=== PATIENT | male | born 1950 | race Caucasian/White ===

== ENCOUNTER → 2017-11-15 | Outpatient (CLI) | payer MEDICARE, OTHER ==
--- NOTE | 2017-11-15 10:25 | Diagnostic Imaging Report ---
INDICATION: Benign prostatic hypertrophy. FINDINGS: The right kidney measures 10.7 x 5.3 x 5.3 cm and the left kidney measures 10.7 x 5.7 x 5.0 cm. The cortical thickness and echogenicity is normal. No calculi are seen. There is no hydronephrosis. The bladder is decompressed. IMPRESSION: Unremarkable renal ultrasound. Dictated by: Dictated on workstation # [id number]
== END ==
LOC: RAD 09:50
PROVIDERS: ATTEND Urology
DX: N40.1 Benign prostatic hyperplasia with lower urinary tract symptoms (principal)
CPT/HCPCS: 76770

== ENCOUNTER 2020-07-26 00:16 | Emergency (ER) | payer MEDICARE, OTHER ==
[~2020-07-26] VITALS: Ht 180 cm; Wt 77.0 kg
--- NOTE | 2020-07-26 00:48 | NUR ---
Pt arrives from home with c/o diarrhea x 1 after becoming red in the face and feeling weak in the legs. Pt reports that he became diaphoretic. Pt reports that he feels much better now. Pt to monitor; IV and fluids started by EMS. Pt does have a hx of high blood sugar; EMS checked his BSL and it was 196.
[2020-07-26 00:50] LABS: BASOPHILS % (AUTO) 0 % (0-10); EOSINOPHILS # (AUTO) 0.2 10^3/uL (0.0-0.3); EOSINOPHILS % (AUTO) 1 % (0-10); HEMATOCRIT 39 % (40-54); HEMOGLOBIN 12.9 g/dL (13.3-17.7); LYMPHOCYTES # (AUTO) 2.3 10^3/uL (1.0-4.0); LYMPHOCYTES % (AUTO) 16 % (12-44); MEAN CORPUSCULAR HEMOGLOBIN 31 pg (25-34); MEAN CORPUSCULAR HGB CONC 33 g/dL (32-36); MEAN CORPUSCULAR VOLUME 93 fL (80-99); MEAN PLATELET VOLUME 10.4 fL (9.0-12.2); MONOCYTES % (AUTO) 7 % (0-12); NEUTROPHILS # (AUTO) 11.4 10^3/uL (1.8-7.8); NEUTROPHILS % (AUTO) 76 % (42-75); PLATELET COUNT 239 10^3/uL (130-400); WHITE BLOOD COUNT 14.9 10^3/uL (4.3-11.0)
--- NOTE | 2020-07-26 00:50 | ED Syncope ---
General Chief Complaint: General Problems/Pain Stated Complaint: SYNCOPAL EPISODE Source of Information: Patient Exam Limitations: No Limitations History of Present Illness Date Seen by Provider: Jul 26, 2020 Time Seen by Provider: 00:26 Initial Comments Patient resents ER by EMS from home with chief complaint that he was downstairs in his basement and he felt his face was flushed red and he was very itchy all over for just a few minutes. It went away and he went to the bathroom had some diarrhea and then felt very weak and laid down on the floor. He denies passing out or striking his head. He called his who called the ambulance. Blood sugar was 196 on EMS arrival. He does have a history of diabetes with an A1c around 7. He's had no fevers chills cough shortness of breath or pain. No history of coronary disease. He says he is otherwise very healthy but he does have a brother who had coronary disease in his 50s and father in his 70s from coronary disease. He does not smoke but he does have hypertension on several antihypertensives which he says he has been taking routinely. Not on any blood thinners. He mentions when he was lying on the floor that he checked his pulse and it felt low but could not tell me a number. Allergies and Home Medications Allergies Coded Allergies: No Known Drug Allergies (Unverified , 07/26/20) Patient Home Medication List Home Medication List Reviewed: Yes Review of Systems Constitutional: No chills, No diaphoresis, No fever, No malaise EENTM: No ear discharge, No ear pain Respiratory: No cough, No short of breath Cardiovascular: No chest pain, No palpitations Gastrointestinal: No abdominal pain, No nausea, No vomiting Genitourinary: No dysuria, No frequency Musculoskeletal: No back pain, No joint pain Skin: No pruritus, No rash Psychiatric/Neurological: Denies Headache, Denies Numbness All Other Systems Reviewed Negative Unless Noted: Yes Past Dkansou-Wthezr-Fpiryy Hx Patient Social History Alcohol Use: Denies Use Recreational Drug Use: No Smoking Status: Never a Smoker Physical Exam Vital Signs Vital Signs - First Documented 07/26/20 00:42 Temp 36.4 Pulse 89 Resp 18 B/P (MAP) 219/109 (145) O2 Delivery Room Air Capillary Refill : Height, Weight, BMI Height: '" Weight: lbs. oz. kg; BMI Method: General Appearance: No Apparent Distress, WD/WN HEENT: PERRL/EOMI, Pharynx Normal, Moist Mucous Membranes Neck: Full Range of Motion, Normal Inspection, Non Tender, Supple Cardiovascular: No Edema, Normal Peripheral Pulses Respiratory: Chest Non Tender, Lungs Clear, Normal Breath Sounds, No Accessory Muscle Use, No Respiratory Distress Gastrointestinal: Normal Bowel Sounds, Non Tender, Soft Extremities: Normal Capillary Refill, Non Tender, No Calf Tenderness, No Pedal Edema Neurologic/Psychiatric: Alert, Oriented x3, No Motor/Sensory Deficits Cranial Nerves: Normal Hearing, Normal Speech, PERRL Motor/Sensory: No Motor Deficit, No Sensory Deficit, No Pronator Drift Skin: Normal Color, Warm/Dry Progress/Results/Core Measures Results/Orders Lab Results Laboratory Tests Test 07/26/20 00:37 07/26/20 00:52 Range/Units White Blood Count 14.9 H 4.3-11.0 10^3/uL Red Blood Count 4.18 L 4.30-5.52 10^6/uL Hemoglobin 12.9 L 13.3-17.7 g/dL Hematocrit 39 L 40-54 % Mean Corpuscular Volume 93 80-99 fL Mean Corpuscular Hemoglobin 31 25-34 pg Mean Corpuscular Hemoglobin Concent 33 32-36 g/dL Red Cell Distribution Width 12.3 10.0-14.5 % Platelet Count 239 130-400 10^3/uL Mean Platelet Volume 10.4 9.0-12.2 fL Immature Granulocyte % (Auto) 1 % Neutrophils (%) (Auto) 76 H 42-75 % Lymphocytes (%) (Auto) 16 12-44 % Monocytes (%) (Auto) 7 0-12 % Eosinophils (%) (Auto) 1 0-10 % Basophils (%) (Auto) 0 0-10 % Neutrophils # (Auto) 11.4 H 1.8-7.8 10^3/uL Lymphocytes # (Auto) 2.3 1.0-4.0 10^3/uL Monocytes # (Auto) 1.0 0.0-1.0 10^3/uL Eosinophils # (Auto) 0.2 0.0-0.3 10^3/uL Basophils # (Auto) 0.0 0.0-0.1 10^3/uL Immature Granulocyte # (Auto) 0.1 0.0-0.1 10^3/uL Neutrophils % (Manual) 78 % Lymphocytes % (Manual) 14 % Monocytes % (Manual) 6 % Eosinophils % (Manual) 1 % Band Neutrophils 1 % Blood Morphology Comment NORMAL Sodium Level 140 135-145 MMOL/L Potassium Level 4.0 3.6-5.0 MMOL/L Chloride Level 105 98-107 MMOL/L Carbon Dioxide Level 22 21-32 MMOL/L Anion Gap 13 5-14 MMOL/L Blood Urea Nitrogen 19 H 7-18 MG/DL Creatinine 1.17 0.60-1.30 MG/DL Estimat Glomerular Filtration Rate > 60 BUN/Creatinine Ratio 16 Glucose Level 196 H 70-105 MG/DL Calcium Level 9.1 8.5-10.1 MG/DL Corrected Calcium 8.9 8.5-10.1 MG/DL Total Bilirubin 0.5 0.1-1.0 MG/DL Aspartate Amino Transf (AST/SGOT) 14 5-34 U/L Alanine Aminotransferase (ALT/SGPT) 21 0-55 U/L Alkaline Phosphatase 58 40-136 U/L Troponin I < 0.028 <0.028 NG/ML C-Reactive Protein High Sensitivity 0.04 0.00-0.50 MG/DL B-Type Natriuretic Peptide 23.3 <100.0 PG/ML Total Protein 6.8 6.4-8.2 GM/DL Albumin 4.3 3.2-4.5 GM/DL Urine Color YELLOW Urine Clarity CLEAR Urine pH 7.5 5-9 Urine Specific [place] 1.020 1.016-1.022 Urine Protein NEGATIVE NEGATIVE Urine Glucose (UA) NEGATIVE NEGATIVE Urine Ketones NEGATIVE NEGATIVE Urine Nitrite NEGATIVE NEGATIVE Urine Bilirubin NEGATIVE NEGATIVE Urine Urobilinogen 0.2 < = 1.0 MG/DL Urine Leukocyte Esterase NEGATIVE NEGATIVE Urine RBC (Auto) NEGATIVE NEGATIVE Urine RBC NONE /HPF Urine WBC NONE /HPF Urine Squamous Epithelial Cells 5-10 /HPF Urine Crystals NONE /LPF Urine Bacteria NEGATIVE /HPF Urine Casts NONE /LPF Urine Mucus SMALL H /LPF Urine Culture Indicated NO My Orders Orders - ALBARO,MAIDA J Orthostatic Vital Signs (Adult (07/26/20 00:43) Cbc With Automated Diff (07/26/20 00:43) Comprehensive Metabolic Panel (07/26/20 00:43) Ekg Tracing (07/26/20 00:43) Continuous Ekg Monitoring (07/26/20 00:43) Troponin I (07/26/20 00:43) BNP (07/26/20 00:43) Ua Culture If Indicated (07/26/20 00:43) Hs C Reactive Protein (07/26/20 00:43) Chest 1 View, Ap/Pa Only (07/26/20 00:51) Manual Differential (07/26/20 00:37) Vital Signs/I&O 07/26/20 07/26/20 00:42 01:02 Temp 36.4 Pulse 89 87 89 87 Resp 18 B/P (MAP) 219/109 (145) 195/105 (135) 207/107 (140) 201/107 (138) O2 Delivery Room Air Progress Progress Note #1: Time: 00:49 Progress Note Plan to get some labs and urine as well as a chest x-ray looking for infection. We'll get an EKG and keep him on a monitor looking for dysrhythmias. Sounds like he had vasovagal syncope. The itching was transient and went away. No new medications. His blood pressure is significantly elevated at 200/100 so we will observe him and see what that does. He is not having any pain but an atypical anginal symptoms always a suspicion. EMS initiated a liter of normal saline and were going to allow that to finish. Orthostatic vital signs. Progress Note #2: Time: 02:14 Progress Note Marginal leukemoid reaction with a white count of uncertain clinical significance. Suspect strongly he had a vasovagal syncope. Butler CT be score 0 points. Low risk; 1.9% risk of 30-day serious adverse event (, arrhythmia, [place] full list in Evidence) Plan have him follow-up with Dr. Brock in the clinic. Blood pressures 150/82 which is acceptable this time. Initial ECG Impression Date: Jul 26, 2020 Initial ECG Impression Time: 00:39 Initial ECG Rate: 97 Initial ECG Rhythm: Normal Sinus Initial ECG Intervals: Normal Initial ECG Impression: Normal Initial ECG Comparisson: No Previous ECG Available Comment Normal sinus rhythm without clinically relevant ST elevation or depression. Diagnostic Imaging Diagonstic Imaging: Xray Plain Films/CT/US/NM/MRI: chest Comments No acute cardiopulmonary processes on one view chest x-ray. Reviewed: Reviewed by Me Departure Impression Primary Impression: Near syncope Disposition: 01 HOME, SELF-CARE Condition: Stable Departure-Patient Inst. Decision time for Depature: 02:15 Referrals: MAE CHAWLA MD (PCP/Family) Primary Care Physician VENKAT BROCK MD [facility] Patient Instructions: Near Fainting (DC) Add. Discharge Instructions: You had a near syncopal event and I suspect it is from vasovagal however could be from your heart. Please review the handout on vasovagal syncope. Plan to follow up with a iron setter for further evaluation in the clinic within the next 2 weeks. Return to the ER if you continue to have these events or you have chest pain, shortness of air or other worrisome symptoms. All discharge instructions reviewed with patient and/or family. Voiced understanding. Copy Copies To 1: VENKAT BROCK MD [facility] MAIDA IRVIN Jul 26, 2020 00:50
[2020-07-26 00:59] LABS: ALBUMIN 4.3 GM/DL (3.2-4.5); CHLORIDE 105 MMOL/L (98-107); SODIUM 140 MMOL/L (135-145)
[2020-07-26 01:00] LABS: CALCIUM 9.1 MG/DL (8.5-10.1)
[2020-07-26 01:01] LABS: GLUCOSE 196 MG/DL (70-105); TOTAL PROTEIN 6.8 GM/DL (6.4-8.2)
[2020-07-26 01:02] VITALS: BP_SYST 195; BP_SYST 201; BP_SYST 207; BP_DIAS 105; BP_DIAS 107
[2020-07-26 01:02] LABS: CARBON DIOXIDE 22 MMOL/L (21-32)
[2020-07-26 01:03] LABS: BILIRUBIN,TOTAL 0.5 MG/DL (0.1-1.0)
[2020-07-26 01:05] LABS: ALKALINE PHOSPHATASE 58 U/L (40-136); CREATININE SERUM 1.17 MG/DL (0.60-1.30); GFR ESTIMATED > 60
[2020-07-26 01:05] LABS: BILIRUBIN,URINE NEGATIVE (NEGATIVE); CLARITY,URINE CLEAR; COLOR,URINE YELLOW; GLUCOSE, URINE (UA) NEGATIVE (NEGATIVE); KETONES,URINE NEGATIVE (NEGATIVE); LEUKOCYTE ESTERASE ,URINE NEGATIVE (NEGATIVE); NITRITE,URINE NEGATIVE (NEGATIVE); PH,URINE 7.5 (5-9); PROTEIN,URINE NEGATIVE (NEGATIVE)
[2020-07-26 01:06] LABS: BUN/CREATININE RATIO 16
[2020-07-26 01:08] LABS: ALANINE AMINOTRANSFERASE 21 U/L (0-55)
[2020-07-26 01:14] LABS: BAND NEUTROPHILS 1 %; EOSINOPHILS % (MANUAL) 1 %; LYMPHOCYTES % (MANUAL) 14 %; MONOCYTES % (MANUAL) 6 %; NEUTROPHILS % (MANUAL) 78 %; RBC MORPH NORMAL
[2020-07-26 01:14] LABS: BACTERIA,URINE NEGATIVE /HPF
--- NOTE | 2020-07-26 02:34 | NUR ---
Dr. Parr in with patient to discuss results and plan of care.
[2020-07-26 02:44] VITALS: BP 177/101
--- NOTE | 2020-07-26 07:21 | Diagnostic Imaging Report ---
Indication: Dyspnea with near syncopal episode. Comparison: None. Discussion: Single portable upright view of the chest was obtained. Normal heart size. No consolidation, pleural fluid, or pneumothorax. No osseous abnormality. Impression: 1. Negative portable chest. Dictated by: Dictated on workstation # [id number]
== END 2020-07-26 02:45 | disposition home or self-care (01) ==
LOC: EDUNIT# 00:16 → ER 00:24
DX: R55 Syncope and collapse (principal)
CPT/HCPCS: 36415; 71045; 80053; 81000; 83880; 84484; 85007; 85027; 86141; 93005

== ENCOUNTER 2023-02-11 18:53 | Emergency (ER) | payer MEDICARE, OTHER ==
--- NOTE | 2023-02-11 19:23 | ED Upper Extremity ---
General Chief Complaint: Upper Extremity Stated Complaint: LEFT ELBOW Nursing Triage Note: Pt states he fell off of a ladder down his staircase at home. Pt presents with left elbow pain. Pt denies hitting his head or loc and is alert and oriented on arrival Source: patient, family Exam Limitations: no limitations History of Present Illness Date Seen by Provider: Feb 11, 2023 Time Seen by Provider: 18:58 Initial Comments 72-year-old right-handed male patient presented POV with complaining of injury to left elbow. Patient states he fell off of a ladder done his staircase while changing a light bulb and landed on left elbow on carpeted area. Patient denies head injury and loss of consciousness or other injuries. Patient complaining of pain in left elbow and rated his pain 8/10 but does not want to have pain med ication in ER. Patient denies focal neurodeficit, headache, nausea and vomiting. 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 Allergies and Home Medications Allergies Coded Allergies: No Known Drug Allergies (Unverified , 07/26/20) Patient Home Medication List Home Medication List Reviewed: Yes Hydrocodone/Acetaminophen (Hydrocodone-Acetamin 5-325 mg) 5 Mg-325 Mg Tablet, 1 TAB PO Q6H PRN for PAIN-MODERATE (5-7) Prescribed by: Melanie de souza on 02/11/231946 Review of Systems Constitutional: see HPI EENTM: see HPI Respiratory: see HPI Cardiovascular: see HPI Gastrointestinal: see HPI Genitourinary: see HPI Musculoskeletal: see HPI Skin: see HPI Psychiatric/Neurological: See HPI All Other Systems Reviewed Negative Unless Noted: Yes Past Ugpyfjm-Eiegou-Nmhxfq Hx Patient Social History Tobacco Use?: No Use of E-Cig and/or Vaping dev: No Substance use?: No Alcohol Use?: No Pt feels they are or have been: No Physical Exam Vital Signs Vital Signs - First Documented 02/11/23 18:58 Temp 36.5 Pulse 96 Resp 18 B/P (MAP) 188/96 (126) Pulse Ox 95 O2 Delivery Room Air Capillary Refill : Less Than 3 Seconds Height, Weight, BMI Height: '" Weight: lbs. oz. kg; 23.00 BMI Method: General Appearance: WD/WN, mild distress HEENT: PERRL/EOMI, normal ENT inspection Neck: non-tender, full range of motion, supple Cardiovascular: regular rate, rhythm, no edema, no gallop, no JVD, no murmur Respiratory: chest non-tender, lungs clear, normal breath sounds, no respiratory distress, no accessory muscle use Gastrointestinal: normal bowel sounds, non tender, soft Back: normal inspection, no vertebral tenderness Shoulder: normal inspection, non-tender Elbow/Forearm: Left, bone tenderness, soft tissue tenderness, swelling Wrist: Yes normal inspection, Yes non-tender, Yes no evidence of injury Hand: normal inspection, non-tender, no evidence of injury Neurologic/Tendon: normal sensation, normal motor functions, normal tendon functions, responds to pain Neurologic/Psychiatric: no motor/sensory deficits, alert, oriented x 3 Skin: normal color, warm/dry Lymphatic: no adenopathy Progress/Results/Core Measures Results/Orders My Orders Orders - MELANIE DE SOUZA MD Elbow 3 View Left (02/11/23 19:03) Vital Signs/I&O 02/11/23 02/11/23 18:58 19:43 Temp 36.5 36.5 Pulse 96 96 Resp 18 18 B/P (MAP) 188/96 (126) 188/96 Pulse Ox 95 95 O2 Delivery Room Air Room Air Blood Pressure Mean: 126 Progress Progress Note : Progress Note 72-year-old right-handed male patient with a fall and injury to left elbow without other injuries. Patient did not want to have pain medication in ER. Patient had blood pressure of 188 at arrival to ER that did not improve but refused to take medication in ER and he stated when he goes home, his blood pressure is going to improve. Patient had left elbow soft tissue edema but x- ray did not show fracture or dislocation. Jack wrap and shoulder sling was applied by STARS SPECIALIST and patient was advised to apply ice. Patient advised to follow-up with primary care physician or return to ER as needed and prescription for hydrocodone was given. Diagnostic Imaging Plain Films/CT/US/NM/MRI: elbow Comments Left shoulder x-ray interpreted by radiologist and reviewed by me and showed: [facility] [place], [place] NAME: CHAD STRAUSS [facility] REC#: [id number] PT STATUS: REG ER : 11/24[birth year]2004 PHYSICIAN: MELANIE DE SOUZA MD ADMIT DATE: 02/11/23/ER FS Signed Date of Exam:02/11/23 CT HEAD/CERVICAL SPINE WO PROCEDURE: CT head and CT cervical spine without contrast. TECHNIQUE: Multiple contiguous axial images were obtained through the brain and cervical spine without the use of intravenous contrast. Sagittal and coronal reformations through the cervical spine were then performed. Auto Exposure Controls were utilized during the CT exam to meet ALARA standards for radiation dose reduction. INDICATION: Headache and back pain after fall. COMPARISON: None. The renner-white matter differentiation is preserved. No acute intracranial hemorrhage. The ventricles and cortical sulci are normal. No midline shift or mass effect. No intracranial mass or fluid collection. Cavum septum noted. The osseous structures demonstrate no acute findings. The paranasal sinuses and mastoids are clear. The globes and orbits are normal. The cervical spine is normally aligned. Disc spaces are maintained. SI joints are normal. No acute fracture or dislocation of the cervical spine. No lytic or sclerotic bone lesion. No high-grade spinal canal or neural foraminal stenosis. No high density fluid within the spinal canal. Visualized soft tissues are normal. IMPRESSION: No acute intracranial hemorrhage. No large vascular territory hanley-white loss. No intracranial mass, midline shift, or hydrocephalus. No acute fracture or dislocation of the cervical spine. Dictated by: Dictated on workstation # [id number] Dict: 02/11/23 1523 Trans: 02/11/23 1525 [facility] [id number] Interpreted by: JOHNNY DEXTER DO Electronically signed by: JOHNNY DEXTER DO 02/11/23 1525 Departure Impression Primary Impression: Contusion of left shoulder Qualified Codes: S40.012A - Contusion of left shoulder, initial encounter Additional Impressions: Fall from ladder Qualified Codes: W11.XXXD - Fall on and from ladder, subsequent encounter Uncontrolled hypertension Disposition: 01 HOME, SELF-CARE Condition: Improved Departure-Patient Inst. Referrals: MAE CHAWLA MD (PCP/Family) Primary Care Physician Patient Instructions: Contusion (DC), High Blood Pressure ED, High Blood Pressure Emergencies, How to Use a Shoulder Sling Add. Discharge Instructions: Apply ice on left elbow Take your blood pressure medication at home and record your blood pressure and follow-up with your primary care physician Return to ER as needed All discharge instructions reviewed with patient and/or family. Voiced understanding. Scripts Hydrocodone/Acetaminophen (Hydrocodone-Acetamin 5-325 mg) 5 Mg-325 Mg Tablet 1 TAB PO Q6H PRN for PAIN-MODERATE (5-7), #10 TAB Prov: MELANIE DE SOUZA MD 02/11/23 MELANIE DE SOUZA MD Feb 11, 2023 19:23
--- NOTE | 2023-02-11 19:33 | Diagnostic Imaging Report ---
INDICATION: Fall. Pain. COMPARISON: None. FINDINGS: 3 views of the left elbow show no fractures, dislocations, or other acute bony abnormalities identified. Joint spaces are well maintained throughout. The soft tissues appear unremarkable. No radiopaque foreign bodies are identified. IMPRESSION: No acute fractures or dislocations of the left elbow. Dictated by: Dictated on workstation # [id number]
[2023-02-11 19:43] VITALS: BP 188/96
[2023-02-11] MEDS ORDERED: ACHD5005 PO ×2 (19:47→19:53)
== END 2023-02-11 19:49 | disposition home or self-care (01) ==
LOC: EDUNIT# 18:53 → ER FS 18:56
DX: S40.012A Contusion of left shoulder, initial encounter (principal); I10 Essential (primary) hypertension; M25.522 Pain in left elbow; Z28.310 Unvaccinated for COVID-19; W11.XXXA Fall on and from ladder, initial encounter; Y92.009 Unspecified place in unspecified non-institutional (private) residence as the place of occurrence of the external cause
CPT/HCPCS: 73080